=== PATIENT | female | born 1985 | race Caucasian/White ===

== ENCOUNTER 2020-07-25 07:48 | Inpatient (IN) ==
[2020-07-25] MEDS ORDERED: OXYTOCIN 30 UNITS/500 ML BAG IV PRN ×3 (09:35→17:40)
[2020-07-25] MEDS ORDERED: PENICILLIN G POTASSIUM 3 MU in DEXTROSE 5% 100 ML IV PRN (09:35)
[2020-07-25] MEDS ORDERED: BETAMETH SOD PHOS/ACETATE IA 6 MG/ML IM STA ×2 (09:40→12:12)
[2020-07-25] MEDS ORDERED: PENICILLIN G POTASSIUM 6 MU in DEXTROSE 5% 250 ML IV ONE (10:00)
[2020-07-25] MEDS: LACTATED RINGER'S 1,000 ML IV PRN ×2 (10:13→11:55)
[2020-07-25 10:14] LABS: Hematocrit (blood only) 38.3 % (37-47); Hemoglobin 12.8 g/dL (12.0-16.0); Mean Corpuscular Hemoglobin 30.8 pg (25-34); Mean Corpuscular Volume 92.1 fL (80-100); Mean Platelet Volume 10.2 fL (7.4-10.4); Platelet Count 269 K/uL (130-400); RDW Coefficient of Variation 13.7 % (11.5-14.5); RDW Standard Deviation 45.8 fL (36.4-46.3); Red Blood Count 4.16 M/uL (4.2-5.4)
[2020-07-25 10:33] LABS: Mean Corpuscular Hgb Conc 33.4 g/dL (32-36)
--- NOTE | 2020-07-25 10:37 | History & Physical Report ---
Date of Service July 25, 2020 Assessment & Plan (1) : 35 y/o [id number] currently at 35 3/7 WGA with an KWAME 08/26/20 as determined by LMP who is here due to spontaneous rupture of membranes - PNL: Rh pos, RI, COVID neg - Will administer betamethasone 12mg IM for lung maturation - GBS not done, as it was scheduled at next visit--will receive empiric intrapartum PCN - Pitocin per protocol for labor augmentation - Anticipate vaginal delivery (2) labor in third trimester: History of Present Illness Primary Care Provider: Beatrice Lee MD Alma is a 35 y/o female [id number] currently at 35 3/7 WGA with an KWAME 08/26/20 as determined by LMP who is here due to spontaneous rupture of membranes. Had an uncomplicated up to this point. Positive contractions; Good movement; Positive fluid loss; No bloody show Had regular appointments with OB. Blood type: A+ Antibody screen: Neg Labs 02/05/20 Rubella: Immune VDRL/RPR: nonreactive Gonorrhea: Negative Chlamydia: Negative HIV: Negative HbSAg: Negative GBS: Not done COVID-19 negative 07/25/20 Allergies Allergy/AdvReac Type Severity Reaction Status Date / Time No Known Drug Allergies Allergy none Verified 07/25/20 08:02 Home Medications Home Medications Medication Instructions Recorded Confirmed Type PNV cmb#95-ferrous fumarate-FA 1 tab PO QAM 10/18/19 07/25/20 History [] Patient History Medical History Abnormal biochemical finding on screening of mother Encounter for anatomic survey Hx of varicella Missed Sinus bradycardia Surgical History History of wisdom tooth extraction Family History Father Hypertension Mother Hypertension Dyslipidemia Sister Lupus Denies family history of Colon cancer Ovarian cancer Prostate cancer Myocardial infarction Breast cancer Social History (Updated 01/11/20 @ 14:13 by Eileen Bryant) Smoking Status: Never smoker Age Quit Using Tobacco: 23; Years Smoked: 7; Hx Alcohol Use: No Hx Substance Use: No Preferred Language: [place] Citizen Communication Ability: Effective Liquid Loader Required: No Beliefs That Will Affect Care: None marital status: marital status details: Sang Hidalgo (33) [phone] Current Living Situation: Spouse and Family Current Living Situation Comment: lives with spouse and [id number], no pets current occupational status: employed 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 Denies shortness of breath or cough Denies chest pain Denies breast pain Denies dysuria or hematuria Denies leg pain or leg swelling Denies headache or changes in vision Physical Exam Physical Exam: General: Alert, oriented. No acute distress. Cardiac: Regular rate and rhythm, no murmurs/rubs/gallops. Respiratory: Clear to auscultation bilaterally a/p, no wheezes/rales/rhonchi. No increased work of breathing. Symmetrical chest rise. No respiratory distress. Abdomen: Gravid. Vertex position. + heart tones. + palpable contractions. EFW []# Pelvic: Dilation 4cm; Effacement [address] Helton External FHT and external uterine monitors used; Category I tracing;Mod FHT variability. Lower Extremities: No lower extremity edema or swelling. No deep calf pain. Darwin's negative bilaterally. Results & Data ([facility]) Vital Signs (Past 12 Hours) Vital Signs Temp Pulse Resp BP 07/25/20 10:19 71 124/74 07/25/20 08:13 36.9 C 18 07/25/20 08:00 93 H 121/73 Laboratory Results Labs on admission today H.8 Hct: 38.3 WBC: 10.50 Plt: 269 Supervising Physician Co-Signing Physician Notes Resident Physician Supervision Note: I was present with Dr. Sam during the history and exam. I discussed the case with the resident and agree with the findings and plan as documented in the note. Any exceptions or clarifications are listed here: 35yo @ 35 11/30, presented with spontaneous rupture of membranes, CTX Q4 minutes and cervix dilated to 4/70/-2. Plan to start pitocin, rapid COVID swab, betamethasone upon negative COVID test, Pen G for GBS unknown prophylaxis. I spoke with Dr Forrest, on-call protocol officer, who agrees that since patient is >35w, ok to stay and labor at [facility]. Documented By: Stephania Helton DO Resident Activity Tracking Resident Involvement: Resident Care Provided Care Provided: OB Delivery
[2020-07-25] MEDS ORDERED: SODIUM CHLORIDE 0.9% INJ 10 ML VIAL ONE (11:05)
[2020-07-25] MEDS ORDERED: ePHEDrine sulfate 50 MG/ML AMP ONE (11:05)
[2020-07-25] MEDS ORDERED: BUPIVACAINE 0.25% 30 ML VIAL ONE (11:06)
[2020-07-25] MEDS ORDERED: fentaNYL citrate 100 MCG/2 ML VIAL ONE (11:06)
[2020-07-25] MEDS ORDERED: fentaNYL 2MCG/ML ROPIVACAINE 1.25MG/ML 100 ML BAG EPI ONE (11:06)
[2020-07-25] MEDS ORDERED: diphenhydrAMINE 50 MG/ML VIAL IV PRN (11:23)
[2020-07-25] MEDS ORDERED: NALOXONE HCL 0.4 MG/1 ML VIAL/CARP IV PRN (11:23)
[2020-07-25] MEDS ORDERED: NALOXONE HCL 1 MG in SODIUM CHLORIDE 0.9% 1000ML 1,000 ML IV PRN (11:23)
[2020-07-25] MEDS ORDERED: fentaNYL 2MCG/ML ROPIVACAINE 1.25MG/ML 100 ML BAG EPI PRN (11:23)
[2020-07-25] MEDS ORDERED: ePHEDrine sulfate 50 MG/ML AMP IV PRN (11:23)
[2020-07-25] MEDS ORDERED: ONDANSETRON INJ 2 MG/ML 2 ML VIAL IV PRN (11:23)
--- NOTE | 2020-07-25 11:26 | Anesthesiology Consultation ---
Date of Service July 25, 2020 Covid 19 negative today. Assessment & Plan Chart Review Chart Review: Patient NOT seen in Pre Admission Testing and Acceptable Risk for Labor Epidural Consults Requested none ASA ASA2 Proposed Anesthesia Anesthesia Type: Labor Epidural and CSE Risk / Benefits Reviewed With: PT / POA / Parent / Guardian, Accepts Plan and Informed Consent Obtained History Height/Weight Height: 5 ft 7.72 in Weight: 97.976 kg Allergies Allergy/AdvReac Type Severity Reaction Status Date / Time No Known Drug Allergies Allergy none Verified 07/25/20 08:02 Medications Home Medications Medication Instructions Recorded Confirmed Last Taken PNV cmb#95-ferrous fumarate-FA 1 tab PO QAM 10/18/19 07/25/20 07/25/20 [] Active Medications Generic Name Dose Route Start Last Admin Trade Name Freq PRN Reason Stop Dose Admin Lactated Ringer's 1,000 mls @ 125 mls/hr 07/25/20 09:35 07/25/20 10:55 Lr IV 07/27/20 09:34 999 mls/hr .Q8H PRN Infusion L&D Protocol Protocol Oxytocin 30 units in 500 mls @ 0 mls/hr 07/25/20 10:01 07/25/20 10:55 Pitocin IV 07/27/20 10:00 0 units/hr .Q0M PRN 0 mls/hr Labor Induction/Augmentation Titration Protocol 0 UNITS/HR NPO Date Last Intake of Fluids: 07/25/20 Time Last Intake of Fluids: 07:30 Date Last Intake of Solids: 07/25/20 Time Last Intake of Solids: 07:30 Past Medical History Medical History Abnormal biochemical finding on screening of mother Encounter for anatomic survey Hx of varicella Missed Sinus bradycardia Exercise / Class Metabolic Activity II 4-5 Yardwork/Stairs/Walk up hill Past Family History Family History Father Hypertension Mother Hypertension Dyslipidemia Sister Lupus Denies family history of Colon cancer Ovarian cancer Prostate cancer Myocardial infarction Breast cancer Past Surgical History Surgical History History of wisdom tooth extraction Past Anesthesia History No Hx of Anesthesia Complications and No Family Hx of Anesthesia Complications History of PONV No Hx of PONV and No Hx of Motion Sickness Social History Smoking Status: Never smoker tobacco type: cigarettes Hx Alcohol Use: No Hx Substance Use: No Review of Systems no chest pain or sob Physical Exam Vital Signs Last Vital Signs Temp 36.9 C 07/25/20 10:19 Pulse 71 07/25/20 10:19 Resp 18 07/25/20 08:13 BP 124/74 07/25/20 10:19 SpO2 100 ENMT Mouth: no TMJ abnormality Thyromental Distance: > or= 3.5 Finger Breadths Mallampati Class: II Neck normal visual inspection Respiratory normal respiratory effort Auscultation: lungs clear to auscultation bilaterally Cardiovascular Rate/Rhythm: regular rate and regular rhythm Musculoskeletal Spine: normal cervical ROM Neurologic moves all extremities Psychiatric Orientation: alert and oriented x 3 Testing Laboratory Results 07/25/20 09:51
--- NOTE | 2020-07-25 14:08 | Labor Progress Brief Note ---
Date of Service July 25, 2020 Subjective Patient is comfortable with epidural. FHT 150s mod oli, +accels, nonrecurrent variable decelerations. [place] Q 2 Pitocin is off, due to variables. Cervix /0 Continue labor. Results & Data ([facility]) Vital Signs (Past 12 Hours) Vital Signs Temp Pulse Resp BP Pulse Ox 07/25/20 14:03 86 140/90 07/25/20 14:01 81 99 07/25/20 13:56 82 98 07/25/20 13:51 72 99 07/25/20 13:48 73 142/82 H 07/25/20 13:46 81 99 07/25/20 13:41 80 100 07/25/20 13:36 84 99 07/25/20 13:33 72 138/75 07/25/20 13:31 69 99 07/25/20 13:26 75 99 07/25/20 13:21 74 99 07/25/20 13:18 71 141/75 H 07/25/20 13:16 70 99 07/25/20 13:11 72 100 07/25/20 13:06 72 99 07/25/20 13:01 74 98 07/25/20 12:56 76 100 07/25/20 12:51 75 99 07/25/20 12:48 73 119/60 07/25/20 12:46 69 100 07/25/20 12:41 82 99 07/25/20 12:36 76 100 07/25/20 12:31 98 H 117/60 100 07/25/20 12:27 72 113/70 07/25/20 12:26 74 100 07/25/20 12:22 74 117/56 L 07/25/20 12:21 76 100 07/25/20 12:17 70 146/78 H 07/25/20 12:16 73 100 07/25/20 12:12 72 129/73 07/25/20 12:11 74 99 07/25/20 12:07 73 128/79 07/25/20 12:06 68 128/69 99 07/25/20 12:01 76 100 07/25/20 12:00 37.3 C 75 18 124/75 07/25/20 11:57 74 125/66 07/25/20 11:56 75 99 07/25/20 11:55 77 125/66 07/25/20 11:53 76 126/65 07/25/20 11:52 78 132/68 07/25/20 11:51 78 99 07/25/20 11:49 72 131/65 07/25/20 11:46 76 100 07/25/20 11:41 78 100 07/25/20 11:36 83 100 07/25/20 11:31 85 100 07/25/20 10:19 36.9 C 71 124/74 07/25/20 08:13 36.9 C 18 07/25/20 08:00 93 H 121/73 Coding Level of Care Code None
--- NOTE | 2020-07-25 15:38 | Labor Progress Brief Note ---
Date of Service July 25, 2020 Subjective Starting to feel discomfort with ctx. FHT 150s mod oli, +variables [place] Q 2 Will start to push as soon as she feels urge. Assessment & Plan Admission and Anticipated Discharge Date Admission Date: July 25, 2020 Results & Data ([facility]) Vital Signs (Past 12 Hours) Vital Signs Temp Pulse Resp BP Pulse Ox 07/25/20 15:33 81 132/74 07/25/20 15:31 82 100 07/25/20 15:26 85 99 07/25/20 15:21 108 H 98 07/25/20 15:18 100 H 137/78 07/25/20 15:16 85 99 07/25/20 15:11 81 99 07/25/20 15:06 78 100 07/25/20 15:03 82 130/72 07/25/20 15:01 82 98 07/25/20 14:56 80 99 07/25/20 14:51 80 97 07/25/20 14:48 81 20 141/74 H 07/25/20 14:46 76 99 07/25/20 14:41 77 98 07/25/20 14:36 79 99 07/25/20 14:33 80 20 143/81 H 07/25/20 14:31 79 100 07/25/20 14:26 78 99 07/25/20 14:21 84 99 07/25/20 14:19 73 18 131/79 07/25/20 14:16 77 100 07/25/20 14:11 81 99 07/25/20 14:10 37.2 C 20 07/25/20 14:06 85 100 07/25/20 14:03 86 140/90 07/25/20 14:01 81 99 07/25/20 13:56 82 98 07/25/20 13:51 72 99 07/25/20 13:48 73 142/82 H 07/25/20 13:46 81 99 07/25/20 13:41 80 100 07/25/20 13:36 84 99 07/25/20 13:33 72 138/75 07/25/20 13:31 69 99 07/25/20 13:26 75 99 07/25/20 13:21 74 99 07/25/20 13:18 71 20 141/75 H 07/25/20 13:16 70 99 07/25/20 13:11 72 100 07/25/20 13:06 72 99 07/25/20 13:01 74 98 07/25/20 12:56 76 100 07/25/20 12:51 75 99 07/25/20 12:48 73 18 119/60 07/25/20 12:46 69 100 07/25/20 12:41 82 99 07/25/20 12:36 76 100 07/25/20 12:33 18 07/25/20 12:31 98 H 117/60 100 07/25/20 12:27 72 113/70 07/25/20 12:26 74 100 07/25/20 12:22 74 117/56 L 07/25/20 12:21 76 100 07/25/20 12:17 70 146/78 H 07/25/20 12:16 73 100 07/25/20 12:12 72 20 129/73 07/25/20 12:11 74 99 07/25/20 12:07 73 128/79 07/25/20 12:06 68 20 128/69 99 07/25/20 12:01 76 100 07/25/20 12:00 37.3 C 75 18 124/75 07/25/20 11:57 74 125/66 07/25/20 11:56 75 99 07/25/20 11:55 77 125/66 07/25/20 11:53 76 126/65 07/25/20 11:52 78 132/68 07/25/20 11:51 78 99 07/25/20 11:49 72 131/65 07/25/20 11:46 76 100 07/25/20 11:41 78 100 07/25/20 11:36 83 100 07/25/20 11:31 85 100 07/25/20 10:19 36.9 C 71 124/74 07/25/20 08:13 36.9 C 18 07/25/20 08:00 93 H 121/73 Coding Level of Care Code None
[2020-07-25] MEDS ORDERED: ERYTHROMYCIN OP OINT 1 GM PKT ONE (16:27)
--- NOTE | 2020-07-25 17:37 | Delivery Summary ---
Vaginal Delivery Summary Date of Service July 25, 2020 Vaginal Delivery Summary Vaginal Delivery Summary: Pre-delivery diagnoses: 35yo @ 35 3/7, PROM, labor Post-delivery diagnoses: same, 2nd degree perineal laceration Procedure: spontaneous vaginal delivery, repair of 2nd degree perineal laceration Surgeon: Stephania Helton DO Complications: none Findings: Viable male . Apgars: 7/7 . Weight 6# 15. Estimated blood loss: 300ml Description of delivery: The patient progressed to complete with epidural anesthesia. She then began to push. She spontaneously vaginally delivered a viable from the cephalic presentation. The head delivered in ROP position. The anterior shoulder delivered, followed by the posterior shoulder, followed by the body. Nuchal x 1, reduced. The baby was placed on mother's abdomen and a spontaneous cry was heard. Delayed cord clamping was employed, and the cord was doubly clamped and cut. A segment was retained for cord gases. Cord blood was obtained. The placenta was delivered spontaneously intact with a 3-vessel cord. The uterus and vagina were swept of clots and debris. IV pitocin was given. The uterus became firm. The cervix, vagina, and perineum were inspected and 2nd degree perineal laceration was noted. Since it went to, but not through, the anal sphincter muscle, a [id number] stitch of 3-0 Chromic was used. The remaining laceration was repaired in standard fashion with 3-0 Vicryl. Excellent hemostasis was observed. Rectal exam revealed no sutures or lacerations in rectum. The mother and baby are recovering in stable and good condition in the room. Sponge, needle, and instrument counts were correct x 2. Stephania Helton DO [facility] Vaginal Delivery Charge Vaginal Delivery Codes: 87077 global code for the antepartum, delivery, and post-
[2020-07-25] MEDS ORDERED: oxyCODONE/ACETAMINOPHEN 5mg/325mg TAB PO PRN (17:40)
[2020-07-25] MEDS ORDERED: SUPERCREAM 0.870% 15 GM JAR EXT PRN (17:40)
[2020-07-25] MEDS ORDERED: bisacodyL 10 MG SUPP PR PRN (17:40)
[2020-07-25] MEDS ORDERED: BENZOCAINE 20% AER SPR 82.5 GM CAN EXT PRN (17:40)
[2020-07-25] MEDS ORDERED: HYDROCORTISONE ACETATE 25 MG SUPP PR PRN (17:40)
[2020-07-25] MEDS ORDERED: ACETAMINOPHEN 325 MG TAB PO PRN (17:40)
[2020-07-25] MEDS ORDERED: DIPHTHERIA/TETANUS/PERTUSSIS 0.5 ML SYR/VIAL IM ONE (17:40)
[2020-07-25 17:55] LABS: Base Excess Cord Arterial Bld -3.6 mEq/L (-9-1.8); Base Excess Cord Venous Blood -2.8 mEq/L (-7.7-1.9); CO2 Cord Arterial Blood 41 mmHg (39.1-73.5); Cord Venous Blood HCO3 21 mmol/L (18.4-26.8); Cord Venous Blood PCO2 34 mmHg (30.4-57.2); Cord Venous Blood PO2 40 mmHg (14.1-43.3); Cord Venous Blood pH 7.41 (7.20-7.44); HCO3 Cord Arterial Blood 22 mmol/L (19.7-28.5); O2 Saturation Cord Venous Bld 83.9 % (<68); PO2 Cord Arterial Blood 27 mmHg (4.1-31.7); pH Cord Arterial Blood 7.34 (7.1-7.38)
[2020-07-25 17:56] LABS: Oxygen Sat Cord Arterial Blood < 60.0 % (<60)
[2020-07-25] MEDS: IBUPROFEN 600 MG TAB PO PRN (18:16)
--- NOTE | 2020-07-25 19:13 | Anesthesia Procedure Note ---
Date of Service July 25, 2020 Anesthesia Post Epidural Note Vital Signs Vital Signs: Temp Pulse Resp BP Pulse Ox 37.1 C 86 20 143/72 H 98 07/25/20 17:33 07/25/20 19:04 07/25/20 18:45 07/25/20 19:04 07/25/20 18:16 Pain Intensity Left Lower Abdomen: Pain Intensity: 3 Notes Mental Status: alert / awake / arousable and participated in evaluation Patient Amnestic to Procedure: Yes Nausea / Vomiting: adequately controlled Pain: adequately controlled Airway Patency, RR, SpO2: stable & adequate BP & HR: stable & adequate Hydration State: stable & adequate Anesthetic Complications: no major complications apparent and Pt Satisfied with anesthetic care Epidural: Removed without complications and With tip intact
[2020-07-25] MEDS: DOCUSATE SODIUM 100 MG CAP PO SCH (21:19)
--- NOTE | 2020-07-26 06:31 | Obstetrical Progress Note ---
Date of Service <Cam Mayberry MD - Last Filed: 07/26/20 07:03> July 26, 2020 Assessment & Plan <Cam Mayberry MD - Last Filed: 07/26/20 07:03> (1) labor in third trimester: - PNL: Rh pos, RI, GBS not done (received intrapartum pcn empirically), COVID neg - Feels well today. Eating well, voiding well, ambulating well - Pain well controlled with ibuprofen 600mg Q4H PRN - Routine care -- OOB, ambulation, diet progression as tolerated - After discharge will have 6 week follow-up with Dr. Helton (2) : Subjective <Cam Mayberry MD - Last Filed: 07/26/20 07:03> Alma is a 35 y/o female who is PPD #1 following at 35 3/7 weeks. She reports feeling well overall this morning. Light abdominal cramping and 2/10 pain well managed on analgesics. Voiding well. Tolerating meals overnight without difficulty. Patient has been able to ambulate some. Has persistent lochia with some improvement this morning. Currently . Review of Systems Denies fever or chills. Denies shortness of breath or cough. Denies chest pain. Denies breast pain. Denies dysuria. Denies leg pain or leg swelling. Denies headache or changes in vision. Physical Exam <Cam Mayberry MD - Last Filed: 07/26/20 07:03> General: Alert, oriented. No acute distress. Cardiac: Regular rate and rhythm. No murmurs. Respiratory: Clear to auscultation bilaterally a/p, no wheezes/rales/rhonchi. No increased work of breathing. Symmetrical chest rise. No respiratory distress. Abdomen: Soft, nontender, nondistended. Bowel sounds present. Uterus: Uterine fundus firm, palpable 1 cm below umbilicus. Lower Extremities: No lower extremity edema or swelling. No deep calf pain. Darwin's negative bilaterally. Results & Data ([facility]) <Cam Mayberry MD - Last Filed: 07/26/20 07:03> Vital Signs (Past 12 Hours) Vital Signs Temp Pulse Pulse Resp BP BP 07/26/20 04:50 36.4 C L 76 16 124/76 07/25/20 23:20 36.5 C 69 18 120/75 07/25/20 20:10 36.6 C 82 18 146/83 H 07/25/20 19:19 92 H 138/73 07/25/20 19:15 36.6 C 18 07/25/20 19:04 86 143/72 H 07/25/20 18:50 85 138/77 07/25/20 18:45 20 07/25/20 18:35 90 148/91 H <Stephania Helton DO - Last Filed: 07/26/20 07:50> Co-Signing Physician Notes Resident Physician Supervision Note: I was present with Dr. Sam during the history and exam. I discussed the case with the resident and agree with the findings and plan as documented in the note. Any exceptions or clarifications are listed here: PPD#1 doing well. Anticipate DC home tomorrow. Documented By: Stephania Helton DO Resident Activity Tracking <Cam Mayberry MD - Last Filed: 07/26/20 07:03> Resident Involvement: Resident Care Provided Care Provided: OB Delivery
[2020-07-26 06:41] LABS: Hematocrit (blood only) 33.4 % (37-47); Hemoglobin 10.9 g/dL (12.0-16.0)
[2020-07-26] MEDS: DOCUSATE SODIUM 100 MG CAP PO SCH ×2 (08:19→20:44)
[2020-07-26] MEDS: PRENATAL VITAMIN 1 TAB PO SCH (08:19)
[2020-07-26] MEDS: IBUPROFEN 600 MG TAB PO PRN (15:33)
[2020-07-26] MEDS ORDERED: bisacodyL 5 MG TABEC PO SCH (20:00)
[2020-07-27] MEDS: IBUPROFEN 600 MG TAB PO PRN ×3 (01:19→15:23)
--- NOTE | 2020-07-27 07:04 | Obstetrical Progress Note ---
Date of Service July 27, 2020 Assessment & Plan (1) state: Ready for DC home today, instructions reviewed. Subjective Ambulation: ambulating normally Voiding: no voiding problems Passing Gas:: Yes Diet Tolerance:: regular diet Lochia:: Small Feeding Type:: breast feeding Physical Exam Constitutional WD/WN, vitals as above Eyes PERRL, conjunctivae normal, anicteric sclerae Neck normal visual inspection Respiratory normal respiratory effort and able to speak in complete sentences; no respiratory distress and no labored breathing Cardiovascular Rate/Rhythm: regular rate and regular rhythm Extremities: no edema Chest (Breasts) Chest: normal inspection of chest Gastrointestinal (Abdomen) Inspection/Auscultation: abdomen normal to inspection Soft, postgravid Psychiatric A+Ox3, euthymic affect Genitourinary OB Exam Abdomen: + fundal height Fundus: + firm and + relation to umbilicus (fundus just below umbilicus); not tender Results & Data ([facility]) Vital Signs (Past 12 Hours) Vital Signs Temp Pulse Resp BP 07/26/20 23:30 97.5 F L 64 18 108/69 07/26/20 20:35 97.9 F 72 16 100/63
[2020-07-27] MEDS: PRENATAL VITAMIN 1 TAB PO SCH (07:56)
[2020-07-27] MEDS: DOCUSATE SODIUM 100 MG CAP PO SCH (07:57)
== END 2020-07-27 17:40 | disposition home or self-care (01) | DRG 807 ==
LOC: OPB 07:48 → 4S1 07:51 → 4S2 20:09